=== PATIENT | male | born 1980 | race Two or more races ===

== ENCOUNTER 2019-08-04 20:39 | Emergency (ER) | payer SELFPAY ==
[~2019-08-04] VITALS: Ht 177.8 cm; Wt 74.8 kg
[2019-08-04 21:00] VITALS: BP 148/89
--- NOTE | 2019-08-04 21:00 | NUR ---
ED Nurse Note: Patient walked in from home d/t right thumb laceration obtained from a can. Patient aao x 4 and ambulatory with steady gait. Patient stable upon assessment, pain 7/10 aching.
--- NOTE | 2019-08-04 21:03 | NUR ---
ED Nurse Note: ERMD at bedside.
[2019-08-04] MEDS ORDERED: Lidocaine 1% Plain 30 ml INJ ONE ×2 (21:05→21:15)
[2019-08-04] MEDS ORDERED: Tetanus/Diptheria/Pertussis IM ONE (21:15)
[2019-08-04] MEDS ORDERED: Cephalexin 500mg cap ORAL ONE (21:15)
--- NOTE | 2019-08-04 21:22 | NUR ---
ED Nurse Note: ERMD at bedside.
--- NOTE | 2019-08-04 21:33 | NUR ---
ED Nurse Note: Xray at bedside.
[2019-08-04] MEDS ORDERED: CEPHALEXIN500 M1 ORAL (21:45)
--- NOTE | 2019-08-04 21:46 | Emergency Room Report ---
History of Present Illness General Chief Complaint: Laceration Source: Patient Present Illness HPI 39-year-old male presents with laceration to the right thumb prior to arrival patient cut it on a can that was open while he was picking to recycling, he endorses sharp pain aggravated with movement only with rest severity is mild, intermittent patient presents for evaluation Allergies: Coded Allergies: No Known Allergies (Unverified , 08/04/19) COVID-19 Screening Contact w/high risk pt: No Recent Travel to affected area: No Experienced COVID-19 symptoms?: No Patient History Past Medical History: see triage record Reviewed Nursing Documentation: PMH: Agreed; PSxH: Agreed Nursing Documentation-PMH Past Medical History: No Stated History Review of Systems All Other Systems: negative except mentioned in HPI Physical Exam Vital Signs Date Time Temp Pulse Resp B/P (MAP) Pulse Ox O2 Delivery O2 Flow Rate FiO2 08/04/19 20:45 98.2 84 20 152/92 (112) 98 Room Air General Appearance: well appearing, no apparent distress Head: normocephalic, atraumatic ENT: hearing grossly normal, normal voice Neck: full range of motion, supple Respiratory: no respiratory distress, speaking full sentences Musculoskeletal: other - Laceration right thumb distal tip, sensation grossly intact, patient is able to flex at the DIP, sensation intact at the distal end of the thumb Neurologic: alert, normal gait Psychiatric: mood/affect normal Skin: no rash Procedures Laceration/Wound Repair Laceration/Wound Repair : Consent: Verbal Wound Location: upper extremity - Right thumb Wound's Depth, Shape: superficial Wound Length (cm): 3 Wound Explored: no foreign body removed Irrigated w/ Saline (ccs): 150 Betadine Prep?: Yes Anesthesia: 1% Lidocaine Volume Anesthetic (ccs): 5 Wound Repaired With: sutures Suture Size/Type: 5:0 Number of Sutures: 6 Patient Tolerated: Well Complications: None Medical Decision Making Diagnostic Impression: Primary Impression: Laceration ER Course 39-year-old male neurovascularly intact presents with right hand laceration to the right distal thumb, neurovascular exam intact, area was repaired, no evidence of tendon laceration Disposition Home with return precautions follow-up with PCP Suture removal in 10 days abx prescribed Patient with recent TDAP Other X-Ray Diagnostic Results Other X-Ray Diagnostic Results : X-Ray ordered: Right hand # of Views/Limited Vs Complete: Complete Indication: Pain EP Interpretation: Yes Interpretation: no dislocation, no fractures Impression: No acute disease Electronically Signed by: Mayur Fagan MD Last Vital Signs Date Time Temp Pulse Resp B/P (MAP) Pulse Ox O2 Delivery O2 Flow Rate FiO2 08/04/19 21:00 98.2 70 18 148/89 99 Room Air Disposition: HOME, SELF-CARE Condition: Stable Scripts Cephalexin* (KEFLEX*) 500 Mg Tablet 500 MG ORAL EVERY 6 HOURS, #28 CAP Prov: Mayur Fagan MD 08/04/19 Referrals: NOT CHOSEN IPA/,REFERRING (PCP) [facility] Patient Instructions: Laceration Care, Adult Additional Instructions: The patient was provided with discharge instructions, notified to follow-up with a primary care doctor and or specialist in the next 24-48 hours, and to return to the ED if they have worsening of their symptoms. Please note that this report is being documented using [employer] technology. This can lead to erroneous entry secondary to incorrect interpretation by the dictating instrument. SUTURE REMOVAL 08/14/2019 Mayur Fagan MD August 04, 2019 21:46
[2019-08-04 21:48] VITALS: BP 138/75
--- NOTE | 2019-08-04 21:48 | NUR ---
ER DISCHARGE NOTE: Patient is cleared to be discharged per ERMD, pt is aox4, on room air, with stable vital signs. pt was given dc and prescription instructions, pt was able to verbalize understanding, pt id band removed. pt is able to ambulate with steady gait. pt took all belongings. pt stable upon discharge.
== END 2019-08-04 21:48 | disposition home or self-care (01) ==
LOC: EMR 21:16
DX: S61.011A Laceration without foreign body of right thumb without damage to nail, initial encounter (principal); W26.8XXA Contact with other sharp object(s), not elsewhere classified, initial encounter; Y93.89 Activity, other specified; Y92.9 Unspecified place or not applicable
CPT/HCPCS: 12002; 73130; 99283; J2001; 90471; 90715